=== PATIENT | male | born 1955 | race Caucasian/White ===

== ENCOUNTER 2024-08-22 07:41 | Emergency (ER) | payer MEDICARE, OTHER ==
[~2024-08-22] VITALS: Ht 170.2 cm; Wt 115.2 kg
[2024-08-22 08:24] LABS: BASO % 0.5 % (0.0-1.0); EOS # 0.1 10^3/uL (0.0-0.5); EOS % 1.3 % (0.0-3.0); HEMATOCRIT 46.7 % (42.0-52.0); HEMOGLOBIN 15.4 g/dl (13.5-17.5); LYMPH # 1.1 10^3/uL (1.5-5.0); LYMPH % 12.8 % (24.0-44.0); MEAN CORPUSCULAR VOLUME 96.9 fl (80.0-96.0); MONO # 0.9 10^3/uL (0.0-0.8); MONO % 11.1 % (2.0-8.0); NEUTROPHILS # 6.1 10^3/uL (1.5-8.5); NEUTROPHILS % 73.6 % (36.0-66.0); PLATELET COUNT, AUTOMATED 208 10^3/uL (150-450); RED BLOOD COUNT 4.82 10^6/uL (4.30-6.10); WHITE BLOOD COUNT 8.3 10^3/uL (4.0-10.0)
[2024-08-22 08:39] LABS: INR 0.91; PROTHROMBIN TIME 12.6 SECONDS (12.5-14.5)
[2024-08-22 08:46] LABS: LIPASE 28 U/L (12-53)
[2024-08-22 08:48] LABS: ALBUMIN 3.2 G/DL (3.2-5.2); ALKALINE PHOSPHATASE 101 U/L (40-129); ALT/SGPT 41 U/L (7.0-40); AST/SGOT 23 U/L (<34); BILIRUBIN,DIRECT 0.1 MG/DL (<0.4); BILIRUBIN,TOTAL 0.3 MG/DL (0.3-1.2); BLOOD UREA NITROGEN 21 MG/DL (9-23); CALCIUM LEVEL 9.4 MG/DL (8.3-10.6); CARBON DIOXIDE LEVEL 26 MMOL/L (20-31); CHLORIDE LEVEL 108 MMOL/L (98-107); CK-MB VALUE MASS 1.4 NG/ML (<3.6); CREATININE FOR GFR 1.18 MG/DL (0.70-1.30); GLOMERULAR FILTRATION RATE > 60.0 (>49); GLUCOSE, FASTING 99 MG/DL (74-106); POTASSIUM SERUM 4.7 MMOL/L (3.5-5.1); SODIUM LEVEL 138 MMOL/L (136-145); TOTAL PROTEIN 6.9 G/DL (5.7-8.2)
[2024-08-22 08:49] LABS: THYROID STIMULATING HORMONE 1.497 uIU/ML (0.55-4.78)
[2024-08-22 08:50] LABS: FREE T4 0.92 NG/DL (0.89-1.76)
[2024-08-22 08:55] LABS: CPK CREATINE PHOSPHOKINASE 100 U/L (46-171)
[2024-08-22 09:36] LABS: CK-MB VALUE MASS 1.3 NG/ML (<3.6)
[2024-08-22 09:37] LABS: MB/CK RELATIVE INDEX 1.31 (< OR =4)
[2024-08-22] MEDS ORDERED: ISOVUE-370 76% 100ML VIAL As Ordered ONE (09:39)
[2024-08-22] MEDS ORDERED: PANT20TA6 PO (11:00)
[2024-08-22] MEDS ORDERED: SUCR1TA PO (11:00)
[2024-08-22] MEDS: PANTOPRAZOLE 40MG VIAL IV ONE (11:08)
[2024-08-22] MEDS: SUCRALFATE 1 GM TAB PO ONE (11:10)
[2024-08-22 11:16] VITALS: BP 196/97; TEMP 97.7; O2SAT 94
== END 2024-08-22 11:23 | disposition home or self-care (01) ==
LOC: M ED 07:41
DX: K29.20 Alcoholic gastritis without bleeding (principal); F17.210 Nicotine dependence, cigarettes, uncomplicated
CPT/HCPCS: 71045; 71275; 80048; 80076; 82550; 82553; 83690; 84439; 84443; 84484; 85025; 85610; 85730; 93005; 93041; 94760; 96374; 99285; J2470; Q9967